=== PATIENT | female | born 1955 | race Caucasian/White ===

== ENCOUNTER 2018-02-10 15:07 | Emergency (ER) | payer MEDICAID ==
[2018-02-10 15:49] VITALS: BMI 20.1
[2018-02-10] MEDS ORDERED: Sodium Chloride 0.9% 1,000 ML IV SCH (16:15)
--- NOTE | 2018-02-10 16:15 | ED PDOC ---
Arrival/HPI - General Chief Complaint: GI Problem Time Seen by Provider: 02/10/18 15:41 Historian: Patient - History of Present Illness Narrative History of Present Illness (Text): A 62 year old female, with no significant past medical history, presents to the emergency department with a complaint of 5 day duration epigastric abdominal pain. The patient notes that she has been having this discomfort for the past 5 day intermittently, but today it remained constant for a few hours and she became concerned. She notes drinking tea and Pepto-Bismol with mild relief of her symptoms. The patient denies fevers, chills, headache, dizziness, chest pain, shortness of breath, dyspnea on exertion, cough, nausea, vomiting, diarrhea, constipation, dark or bloody stool, back pain, neck pain, urinary/bowel changes, or any other complaint. PMD: Dr. Dowd 02/10/18 21:18 Time/Duration: Other (5 days) Symptom Onset: Gradual Symptom Course: Intermittent Activities at Onset: Rest, Light Context: Home Past Medical History - Provider Review Nursing Documentation Reviewed: Yes - Past Medical History Past Medical History: No Previous - Endocrine/Metabolic Other/Comment: "pre diabetic" diet controlled - Psychiatric Hx Depression: No Hx Emotional Abuse: No Hx Physical Abuse: No Hx Substance Use: No - Past Surgical History Past Surgical History: No Previous - Surgical History Hx Section: Yes - Anesthesia Hx Anesthesia: Yes Hx Anesthesia Reactions: No - Suicidal Assessment Feels Threatened In Home Enviroment: No Family/Social History - Physician Review Nursing Documentation Reviewed: Yes Family/Social History: No Known Family HX Smoking Status: Never Smoked Hx Alcohol Use: No Hx Substance Use: No Hx Substance Use Treatment: No Allergies/Home Meds Allergies/Adverse Reactions: Allergies No Known Allergies Allergy (Verified 02/10/18 15:43) Review of Systems - Physician Review All systems were reviewed & negative as marked: Yes - Review of Systems Constitutional: absent: Fatigue, Weight Change, Fevers Eyes: absent: Vision Changes ENT: absent: Hearing Changes Respiratory: absent: SOB, Cough Cardiovascular: absent: Chest Pain, ARCHULETA Gastrointestinal: Abdominal Pain (epigastric abdominal pain). absent: Stool Changes, Constipation, Diarrhea, Nausea, Vomiting Genitourinary Female: absent: Urine Output Changes Musculoskeletal: absent: Back Pain, Neck Pain Skin: absent: Rash, Pruritis Neurological: absent: Headache, Dizziness Endocrine: absent: Diaphoresis Physical Exam Temperature: Afebrile Pulse: Regular Respiratory Rate: Normal Appearance: Positive for: Well-Appearing, Non-Toxic, Comfortable Pain Distress: None Mental Status: Positive for: Alert and Oriented X 3 - Systems Exam Head: Present: Atraumatic, Normocephalic Pupils: Present: PERRL Extroacular Muscles: Present: EOMI Conjunctiva: Present: Normal Ears: Present: Normal Mouth: Present: Moist Mucous Membranes Pharnyx: Present: Normal. No: ERYTHEMA, EXUDATE Nose (External): Present: Atraumatic Neck: Present: Normal Range of Motion Respiratory/Chest: Present: Clear to Auscultation, Good Air Exchange. No: Respiratory Distress, Accessory Muscle Use Cardiovascular: Present: Regular Rate and Rhythm, Normal S1, S2. No: Murmurs Abdomen: Present: Tenderness (epigastric and right lower quadrant abdominal tenderness.), Normal Bowel Sounds. No: Distention, Peritoneal Signs, Rebound, Guarding Back: Present: Normal Inspection. No: CVA Tenderness Upper Extremity: Present: Normal Inspection. No: Cyanosis, Edema Lower Extremity: Present: Normal Inspection. No: Edema Neurological: Present: GCS=15, CN II-XII Intact, Speech Normal Skin: Present: Warm, Dry, Normal Color. No: Rashes Psychiatric: Present: Alert, Oriented x 3, Normal Insight, Normal Concentration Medical Decision Making ED Course and Treatment: 02/10/18 16:16 Impression: A 62 year old female presents to the emergency department with a complaint of 5 day duration epigastric abdominal pain. On exam RLQ abdominal pain. Likely gastritis given epigastric pain, overall well appearance and no RUQ pain, but will seek CT to rule out appdx given RLQ pain. Plan: -- Abdomen/Pelvis CT -- EKG -- Labs -- Urinalysis -- Pepcid and IV Fluids -- Reassess and disposition Progress Notes: EKG: Ordered, reviewed, and independently interpreted the EKG. Rate : 83 BPM Rhythm : NSR Interpretation : No STEMI 02/10/18 19:35 UA w/ 2-5 WBC + LE. However no Urinary complaints: Asymptomatic bacteria in urine CT w/ Gastritis pt notes improvement of pain labs otherwise unremarkable will d/c home with return indications and followup, pt agreeable to plan. PROCEDURE: CT Abdomen and Pelvis with contrast Dictator : Mikhail Maxwell MD Report Date : 02/10/2018 19:19:21 IMPRESSION: No appreciable acute inflammatory process in the abdomen or pelvis. Stomach is decompressed limiting evaluation. A mild amount of gastritis cannot fully be excluded. No evidence of gallstones or gallbladder wall thickening. No evidence of bile duct dilatation. Nonspecific distended urinary bladder with secondary ureteral dilatation and prominent bilateral extrarenal pelvis. No evidence of bowel obstruction. - Lab Interpretations I have reviewed the lab results: Yes - EKG Interpretation Interpreted by ED Physician: Yes Type: 12 lead EKG - Scribe Statement The provider has reviewed the documentation as recorded by the Scribe Susy Jaeger Provider Scribe Attestation: All medical record entries made by the Scribe were at my direction and personally dictated by me. I have reviewed the chart and agree that the record accurately reflects my personal performance of the history, physical exam, medical decision making, and the department course for this patient. I have also personally directed, reviewed, and agree with the discharge instructions and disposition. Disposition/Present on Arrival - Present on Arrival Any Indicators Present on Arrival: No History of DVT/PE: No History of Uncontrolled Diabetes: No Urinary Catheter: No History of Decub. Ulcer: No History Surgical Site Infection Following: None - Disposition Have Diagnosis and Disposition been Completed?: Yes Diagnosis: Gastritis Disposition: HOME/ ROUTINE Disposition Time: 19:36 Condition: GOOD Discharge Instructions (ExitCare): Gastritis (DC) Print Language: B[place] Additional Instructions: YOU HAD SOME DISTENSION IN YOUR BLADDER. YOU NEED TO FOLLOW UP WITH YOUR UROLOGIST. WE HAVE PROVIDED ONE IF YOU DONT HAVE ONE. YOU HAVE HAD GASTRITIS. FOLLOW UP WITH YOUR PRIMARY CARE DOCTOR AND A STOMACH DOCTOR WE HAVE PROVIDED. HALINA MIMS, thank you for letting us take care of you today. Your provider was Santino Contreras and you were treated for ABD PAIN. The emergency medical care you received today was directed at your acute symptoms. If you were prescribed any medication, please fill it and take as directed. It may take several days for your symptoms to resolve. Return to the Emergency Department if your symptoms worsen, do not improve, or if you have any other problems. Please contact your doctor or call one of the physicians/clinics you have been referred to that are listed on the Patient Visit Information form that is included in your discharge packet. Bring any paperwork you were given at discharge with you along with any medications you are taking to your follow up visit. Our treatment cannot replace ongoing medical care by a primary care provider outside of the emergency department. [facility]. If you had an X-Ray or CT scan: A Radiologist will review the ED reading if any change in treatment is needed we will contact you. If you had a blood, urine, or wound culture: It will take several days for the results, if any change in treatment is needed we will contact you. If you had an STI test: It will take 48 hours for the results. Please call after 1 week if you have not heard back. Prescriptions: Famotidine [Pepcid] 20 mg PO Q12H PRN 3 Days #6 tab PRN Reason: Pain, Moderate (4-7) Referrals: [facility] [Outside] - Follow up with primary [facility] [Outside] - Follow up with primary Maykel Downing MD [Staff Provider] - Follow up with primary Claudia Lombardo MD [Staff Provider] - Follow up with primary Forms: [facility] ([place])
[2018-02-10 16:33] VITALS: TEMP 98.1; O2SAT 99
[2018-02-10 16:48] LABS: URINE BILIRUBIN NEGATIVE (NEGATIVE); URINE BLOOD NEGATIVE (NEGATIVE); URINE GLUCOSE (UA) NEGATIVE (NEGATIVE); URINE LEUKOCYTE ESTERASE TRACE Leu/uL (NEGATIVE); URINE PROTEIN NEGATIVE mg/dL (<30 mg/dL); URINE UROBILINOGEN 0.2 E.U./dL (<1 E.U./dL)
[2018-02-10 16:49] LABS: EOS % 0.3 % (1.5-5.0); GRAN # 4.38 (1.4-6.5); GRAN % 73.9 % (50.0-68.0); LYMPH # 1.3 (1.2-3.4); LYMPH % 22.3 % (22.0-35.0); MEAN CORPUSCULAR HEMOGLOBIN 29.9 pg (25.0-35.0); MEAN CORPUSCULAR HGB CONC 32.5 g/dl (31.0-37.0); MEAN PLATELET VOLUME 9.2 fl (7.0-11.0); MONO # 0.2 (0.1-0.6); MONO % 3.5 % (1.0-6.0); RBC 4.35 10^6/uL (3.5-6.1); RED CELL DISTRIBUTION WIDTH 13.8 % (11.5-14.5); URINE APPEARANCE CLEAR (CLEAR); URINE COLOR STRAW (YELLOW); WHITE BLOOD COUNT 5.9 10^3/uL (4.5-11.0)
[2018-02-10 16:58] LABS: ALB/GLOB RATIO 1.1 (1.1-1.8); ALBUMIN 4.4 g/dL (3.0-4.8); ALT/SGPT 28 U/L (7-56); AST/SGOT 32 U/L (14-36); BLOOD UREA NITROGEN 11 mg/dL (7-21); CALCIUM 9.1 mg/dL (8.4-10.5); GFR NON-AFRICAN AMERICAN > 60; LIPASE 270 U/L (23-300)
[2018-02-10 17:09] LABS: TROPONIN I < 0.01 ng/mL
[2018-02-10] MEDS ORDERED: Iohexol 350 MG/100 ML VIAL ONE (17:39)
[2018-02-10 18:38] VITALS: BP 123/74; PULSE 74
--- NOTE | 2018-02-10 19:22 | CT ---
Date of service: 02/10/2018 PROCEDURE: CT Abdomen and Pelvis with contrast HISTORY: abd pain, epig, rlq COMPARISON: None. TECHNIQUE: Contrast dose: 100 milliliters Radiation dose: Total exam DLP = 194.55 mGy-cm. This CT exam was performed using one or more of the following dose reduction techniques: Automated exposure control, adjustment of the mA and/or kV according to patient size, and/or use of iterative reconstruction technique. FINDINGS: LOWER THORAX: No appreciable infiltrate is seen in the lungs. No pneumothorax or pleural effusion is seen. Visualized distal esophagus is unremarkable. Stomach is decompressed limiting evaluation. Minor amount of gastric wall thickening is not excluded. Duodenum is unremarkable. LIVER: Unremarkable. No gross lesion or ductal dilatation. GALLBLADDER AND BILE DUCTS: Unremarkable. PANCREAS: Unremarkable. No gross lesion or ductal dilatation. SPLEEN: Unremarkable. ADRENALS: Unremarkable. No mass. KIDNEYS AND URETERS: There is evidence of nonspecific bilateral extra renal pelvis which are also noted to be prominent. Bladder is moderately distended and there is some mild dilatation of the ureters which may be accounting for a portion of the dilatation. No significant perinephric changes are seen. No renal calculi are noted. There is mild scarring of the right kidney, greater in the upper pole region. VASCULATURE: Unremarkable. No aortic aneurysm. No aortic atherosclerotic calcification or mural plaque present. BOWEL: No appreciable bowel obstruction. Mild chronic diverticular changes of the colon. Moderate residual fecal material seen throughout the colon. No small bowel dilatation or small bowel obstruction is noted. No pneumatosis is seen. APPENDIX: Normal appendix. PERITONEUM: No ascites. LYMPH NODES: Unremarkable. No enlarged lymph nodes. BLADDER: Bladder is distended without significant wall thickening. REPRODUCTIVE: Uterus is grossly normal in size with a few small calcified fibroids not excluded. No appreciable adnexal masses or cul-de-sac fluid is seen BONES: Mild degenerative changes are seen in the spine without compression fracture. No lytic process is seen. OTHER FINDINGS: None. IMPRESSION: No appreciable acute inflammatory process in the abdomen or pelvis. Stomach is decompressed limiting evaluation. A mild amount of gastritis cannot fully be excluded. No evidence of gallstones or gallbladder wall thickening. No evidence of bile duct dilatation. Nonspecific distended urinary bladder with secondary ureteral dilatation and prominent bilateral extrarenal pelvis. No evidence of bowel obstruction.
[2018-02-10 19:58] VITALS: RESP 18
--- NOTE | 2018-02-11 11:19 | CARD ---
APPROVED REPORT Date of service: 02/10/2018 EKG Measurement Heart [id number] <Conclusion> Normal sinus rhythm RVCD Normal ECG
== END 2018-02-10 19:47 | disposition home or self-care (01) ==
LOC: ED 15:07
DX: K29.70 Gastritis, unspecified, without bleeding (principal)
CPT/HCPCS: 74177; 80053; 81001; 83690; 84484; 85025; 87086; 93005; 96374; 99284; J7030; Q9967